=== PATIENT | female | born 1980 | race Caucasian/White ===

== ENCOUNTER 2024-09-13 17:53 | Inpatient (IN) | payer OTHER ==
[~2024-09-13] VITALS: Ht 160 cm; Wt 53.3 kg
[2024-09-13 18:50] LABS: BASO # 0.0 10^3/uL (0.0-0.2); BASO % 0.3 % (0.0-1.0); EOS # 0.2 10^3/uL (0.0-0.5); EOS % 1.7 % (0.0-3.0); LYMPH # 2.3 10^3/uL (1.5-5.0); LYMPH % 24.4 % (24.0-44.0); MONO # 0.4 10^3/uL (0.0-0.8); MONO % 3.8 % (2.0-8.0); NEUTROPHILS # 6.5 10^3/uL (1.5-8.5); NEUTROPHILS % 68.7 % (36.0-66.0); PLATELET COUNT, AUTOMATED 222 10^3/uL (150-450)
[2024-09-13 19:04] LABS: INR 1.18
[2024-09-13 19:46] LABS: ALT/SGPT 66.0 U/L (7.0-40); AST/SGOT 174.0 U/L (<34)
[2024-09-13] MEDS: MIDAZOLAM INJ 2 MG/2 ML VIAL IV STA (20:04)
[2024-09-13] MEDS: LIDOCAINE W/EPINEPHrine 1% 20 ML VIAL SC ONE ×2 (20:08→21:12)
[2024-09-13 20:24] LABS: ETHYL ALCOHOL (ETHANOL) 0.283 % (0.000-0.010)
[2024-09-13] MEDS: ceFAZolin SOD 1 GM in DEXTROSE 5% (D5W) ADV/MINI-BAG 50 ML IV ONE (21:01)
[2024-09-13 22:53] LABS: PLATELET COUNT, AUTOMATED 194 10^3/uL (150-450)
[2024-09-14] VITALS (7 sets, daily range): BP systolic 118–128; BP diastolic 85–99; TEMP 97.3–97.9; O2SAT 97–98
[2024-09-14] MEDS: PERCOCET 5MG/325MG TAB PO ONE (00:08)
[2024-09-14] MEDS: ONDANSETRON 4MG 2ML VIAL IV ONE (01:28)
[2024-09-14] MEDS: HYDROMORPHONE HCL 0.5 MG/0.5 ML SYRINGE IV ONE (01:59)
[2024-09-14] MEDS: KETOROLAC 30 MG/ML 1 ML VIAL IV SCH (02:00)
[2024-09-14] MEDS: UNRESOLVED CLARIFICATION ENTRY XX STA (02:20)
[2024-09-14] MEDS ORDERED: DEXT15CA5 PO (03:45)
[2024-09-14] MEDS ORDERED: DEXT10CA5 PO (03:45)
[2024-09-14] MEDS ORDERED: EPIN0.3I11 INJ (03:45)
[2024-09-14] MEDS ORDERED: CIPR500T39 PO (03:45)
[2024-09-14] MEDS ORDERED: AMLO1TAB24 PO (03:56)
[2024-09-14] MEDS ORDERED: VITAMIN B12 PO (03:56)
[2024-09-14] MEDS ORDERED: FLUTISP (03:56)
[2024-09-14] MEDS ORDERED: IBUP-1114 PO (03:56)
[2024-09-14] MEDS ORDERED: SUMA25TA3 PO (03:56)
[2024-09-14] MEDS ORDERED: MAGNESIUM PO (03:56)
[2024-09-14] MEDS ORDERED: ALPR0.5T3 PO (03:56)
[2024-09-14] MEDS ORDERED: MULTTAB20 PO (03:56)
[2024-09-14] MEDS ORDERED: HOME MED LIST COMPLETE! XX SCH (04:00)
[2024-09-14 05:53] LABS: BASO # 0.0 10^3/uL (0.0-0.2); BASO % 0.1 % (0.0-1.0); EOS # 0.0 10^3/uL (0.0-0.5); EOS % 0.0 % (0.0-3.0); LYMPH # 2.4 10^3/uL (1.5-5.0); LYMPH % 27.1 % (24.0-44.0); MONO # 0.3 10^3/uL (0.0-0.8); MONO % 3.6 % (2.0-8.0); NEUTROPHILS # 6.0 10^3/uL (1.5-8.5); NEUTROPHILS % 68.9 % (36.0-66.0); PLATELET COUNT, AUTOMATED 174 10^3/uL (150-450)
[2024-09-14 06:25] LABS: CALCIUM LEVEL 8.1 MG/DL (8.5-10.1); CARBON DIOXIDE LEVEL 24 MMOL/L (20-31); CHLORIDE LEVEL 103 MMOL/L (98-107); CREATININE FOR GFR 0.44 MG/DL (0.55-1.30); GLOMERULAR FILTRATION RATE > 90.0 (>58); POTASSIUM SERUM 3.3 MMOL/L (3.5-5.1); SODIUM LEVEL 140 MMOL/L (136-145)
[2024-09-14] MEDS: ACETAMINOPHEN *IV* 500 MG in IV 1 EA IV ONE (06:46)
[2024-09-14] MEDS: POTASSIUM CHLORIDE 10MEQ SR TABLET PO ONE (06:47)
[2024-09-14] MEDS: DOCUSATE SODIUM 100 MG CAPSULE PO SCH (09:00)
[2024-09-14] MEDS: ALPRAZolam 0.5 MG TAB PO PRN (09:40)
[2024-09-14] MEDS: ENOXAPARIN 40 MG/0.4 ML SYRINGE (J1650 PER 10MG) SC SCH (09:40)
[2024-09-14] MEDS: LIDOCAINE 5% PATCH TD ONE (09:47)
[2024-09-14] MEDS: MORPHINE 2 MG/ML 1 ML VIAL IV PRN (13:14)
[2024-09-14] MEDS: NICOTINE 21 MG/24 HR 1 EA TRANSDERMAL TD SCH (15:31)
[2024-09-14] MEDS: FOLIC ACID 1 MG TAB PO SCH (15:32)
[2024-09-14] MEDS: MULTIVITAMINS/MINERALS THERAP 1 TAB PO SCH (15:32)
[2024-09-14] MEDS: ACETAMINOPHEN 325 MG TAB PO SCH (15:33)
[2024-09-14] MEDS: THIAMINE 100 MG TAB PO SCH (16:38)
[2024-09-14] MEDS: MORPHINE 2 MG/ML 1 ML VIAL IV ONE (21:46)
[2024-09-15] VITALS (8 sets, daily range): BP systolic 109–123; BP diastolic 64–85; TEMP 97.2–97.8; O2SAT 96–99
[2024-09-15 06:16] LABS: PLATELET COUNT, AUTOMATED 141 10^3/uL (150-450)
[2024-09-15 06:42] LABS: ALT/SGPT 51 U/L (7.0-40); AST/SGOT 133 U/L (<34); CALCIUM LEVEL 7.5 MG/DL (8.5-10.1); CARBON DIOXIDE LEVEL 26 MMOL/L (20-31); CHLORIDE LEVEL 102 MMOL/L (98-107); CREATININE FOR GFR 0.47 MG/DL (0.55-1.30); GLOMERULAR FILTRATION RATE > 90.0 (>58); POTASSIUM SERUM 3.4 MMOL/L (3.5-5.1); SODIUM LEVEL 139 MMOL/L (136-145)
[2024-09-15] MEDS: POTASSIUM CHLORIDE 10MEQ SR TABLET PO ONE (08:13)
[2024-09-15] MEDS ORDERED: DEXTROAMPHETAMINE SULFATE PO SCH (09:00)
[2024-09-15] MEDS ORDERED: DEXTROAMPHETAMINE SULFATE 10 MG PO SCH (12:00)
[2024-09-15] MEDS: LIDOCAINE 5% PATCH TD ONE (13:07)
[2024-09-15] MEDS ORDERED: ALBUTEROL SULFATE 2.5 MG/0.5 ML INH CONCENTRATE NEB SOLN NEB PRN (15:40)
[2024-09-15] MEDS: ONDANSETRON 4MG 2ML VIAL IV PRN (17:45)
[2024-09-16 00:15] VITALS: BP 118/85; TEMP 97.4; O2SAT 97
[2024-09-16 03:39] VITALS: BP 109/74; TEMP 97.8; O2SAT 96
[2024-09-16 05:11] LABS: PLATELET COUNT, AUTOMATED 144 10^3/uL (150-450)
[2024-09-16 05:38] LABS: ALT/SGPT 52 U/L (7.0-40); AST/SGOT 125 U/L (<34); CALCIUM LEVEL 7.3 MG/DL (8.5-10.1); CARBON DIOXIDE LEVEL 26 MMOL/L (20-31); CHLORIDE LEVEL 101 MMOL/L (98-107); CREATININE FOR GFR 0.50 MG/DL (0.55-1.30); GLOMERULAR FILTRATION RATE > 90.0 (>58); POTASSIUM SERUM 3.3 MMOL/L (3.5-5.1); SODIUM LEVEL 140 MMOL/L (136-145)
[2024-09-16] MEDS: KCL 10MEQ/100ML SWI (KRUN) 10 MEQ in IV 1 EA IV SCH (07:28)
[2024-09-16 07:49] VITALS: BP 119/81; TEMP 97.2; O2SAT 94
[2024-09-16] MEDS: PANTOPRAZOLE 40MG TAB PO SCH (09:00)
[2024-09-16] MEDS: POTASSIUM CHLORIDE 10MEQ SR TABLET PO ONE (11:05)
[2024-09-16 15:51] VITALS: BP 126/89; TEMP 97.6; O2SAT 96
[2024-09-16 17:32] LABS: CALCIUM LEVEL 8.0 MG/DL (8.5-10.1); CARBON DIOXIDE LEVEL 27 MMOL/L (20-31); CHLORIDE LEVEL 102 MMOL/L (98-107); CREATININE FOR GFR 0.57 MG/DL (0.55-1.30); GLOMERULAR FILTRATION RATE > 90.0 (>58); POTASSIUM SERUM 4.0 MMOL/L (3.5-5.1); SODIUM LEVEL 137 MMOL/L (136-145)
[2024-09-16 19:43] VITALS: BP 131/70; TEMP 96.3; O2SAT 96
[2024-09-16] MEDS: POTASSIUM CHLORIDE 10MEQ SR TABLET PO SCH (20:48)
[2024-09-17 03:36] VITALS: BP 98/55; TEMP 97; O2SAT 95
[2024-09-17 05:53] LABS: CALCIUM LEVEL 8.5 MG/DL (8.5-10.1); CARBON DIOXIDE LEVEL 24 MMOL/L (20-31); CHLORIDE LEVEL 105 MMOL/L (98-107); CREATININE FOR GFR 0.52 MG/DL (0.55-1.30); GLOMERULAR FILTRATION RATE > 90.0 (>58); MAGNESIUM LEVEL 1.6 MG/DL (1.8-2.4); POTASSIUM SERUM 4.3 MMOL/L (3.5-5.1); SODIUM LEVEL 141 MMOL/L (136-145)
[2024-09-17 07:31] VITALS: BP 111/73; TEMP 97.9; O2SAT 97
[2024-09-17] MEDS: MAG SULF 1GM/100ML (MAG RUN) 1 GM in IV 1 EA IV SCH (08:01)
[2024-09-17] MEDS ORDERED: OXYC-517 PO ×2 (11:40→11:41)
[2024-09-17] MEDS ORDERED: MAGN400C2 PO (11:45)
[2024-09-17] MEDS ORDERED: LIDO1PAD TOP (12:18)
[2024-09-18 01:52] LABS: HEP INDUCED PLT AB PATIENT OD 0.116 OD UNITS (<=0.300); HEPARIN INDUCED PLATELET ABY Negative (Negative)
== END 2024-09-17 16:57 | disposition home health service (06) | DRG 342 ==
LOC: EDBD 17:53 → M ED 17:53 → M ED INP 09-14 01:25 → M PCU 09-14 04:42
PROVIDERS: ADMIT Surgery; ATTEND Student in an Organized Health Care Education/Training Program
DX: S82.422A Displaced transverse fracture of shaft of left fibula, initial encounter for closed fracture (principal); S22.41XA Multiple fractures of ribs, right side, initial encounter for closed fracture; S27.0XXA Traumatic pneumothorax, initial encounter; D69.6 Thrombocytopenia, unspecified; E83.42 Hypomagnesemia; E87.6 Hypokalemia; F10.10 Alcohol abuse, uncomplicated; I10 Essential (primary) hypertension; F41.9 Anxiety disorder, unspecified; F17.200 Nicotine dependence, unspecified, uncomplicated; S00.03XA Contusion of scalp, initial encounter; Z91.013 Allergy to seafood; Z88.8 Allergy status to other drugs, medicaments and biological substances; Z88.2 Allergy status to sulfonamides; Z79.899 Other long term (current) drug therapy; G43.909 Migraine, unspecified, not intractable, without status migrainosus; J98.11 Atelectasis; V86.55XA Driver of 3- or 4- wheeled all-terrain vehicle (ATV) injured in nontraffic accident, initial encounter

== ENCOUNTER → 2024-09-29 | Outpatient (CLI) | payer OTHER ==
[~2024-09-29] MED LIST: ALPR0.5T3 PO; AMLO1TAB24 PO; CIPR500T39 PO; DEXT10CA5 PO; DEXT15CA5 PO; EPIN0.3I11 INJ; FLUTISP; IBUP-1114 PO; LIDO1PAD TOP; MAGN400C2 PO; MAGNESIUM PO; MULTTAB20 PO; OXYC-517 PO; SUMA25TA3 PO; VITAMIN B12 PO
== END ==
LOC: M SOG 06:59
PROVIDERS: ATTEND Orthopaedic Surgery
DX: M25.572 Pain in left ankle and joints of left foot (principal)

== ENCOUNTER 2024-10-01 23:11 | Emergency (ER) | payer OTHER ==
[~2024-10-01] VITALS: Ht 162.6 cm; Wt 50.5 kg
[2024-10-01 23:35] VITALS: BP 106/80; TEMP 98.3; O2SAT 99
== END 2024-10-02 00:15 | disposition left against medical advice (07) ==
LOC: M ED 23:11
DX: Z53.21 Procedure and treatment not carried out due to patient leaving prior to being seen by health care provider (principal)

== ENCOUNTER → 2024-10-14 | Outpatient (CLI) | payer OTHER | LOC: M SOG 07:01 | PROVIDERS: ATTEND Orthopaedic Surgery | DX: S82.402D Unspecified fracture of shaft of left fibula, subsequent encounter for closed fracture with routine healing (principal); W18.30XD Fall on same level, unspecified, subsequent encounter ==

== ENCOUNTER → 2024-11-04 | Outpatient (CLI) | payer OTHER | LOC: M SOG 07:30 | PROVIDERS: ATTEND Orthopaedic Surgery | DX: Z53.9 Procedure and treatment not carried out, unspecified reason (principal) ==

== ENCOUNTER → 2024-11-11 | Outpatient (CLI) | payer OTHER | LOC: M SOG 07:16 | PROVIDERS: ATTEND Orthopaedic Surgery | DX: S82.402D Unspecified fracture of shaft of left fibula, subsequent encounter for closed fracture with routine healing (principal) ==

== ENCOUNTER → 2024-12-23 | Outpatient (CLI) | payer OTHER | LOC: M SOG 07:31 | PROVIDERS: ATTEND Orthopaedic Surgery | DX: S82.402D Unspecified fracture of shaft of left fibula, subsequent encounter for closed fracture with routine healing (principal); Z53.9 Procedure and treatment not carried out, unspecified reason ==